=== PATIENT | male | born 1960 | race Caucasian/White ===

== ENCOUNTER 2018-04-08 12:30 | Inpatient (IN) | payer OTHER ==
--- NOTE | 2018-04-08 12:56 | PDOC ---
History of Present Illness - General Chief Complaint: Pain Stated Complaint: ABD PAIN Time Seen by Provider: 04/08/18 12:34 History Source: Patient Exam Limitations: No Limitations - History of Present Illness Initial Comments: 04/08/18 12:55 The patient is a 58M wit a PMH of T2DM, HTN, elevated LFT's obesity, hypertriglyceridemia, who presents to the ER with complaints of abdominal pain. The patient states that his abdominal pain started this morning and was initially diffuse, associated with nausea, vomiting, sweats, chills, and diarrhea. He states that since then, the pain has been more focused in his RUQ, does not radiate, and is not associated with CP, cough, or fevers. He states that his vomit was NBNB and his diarrhea was nonbloody. He cannot describe his abdominal pain any further. He denies any dysuria. Past History - Past Medical History Allergies/Adverse Reactions: Allergies Allergy/AdvReac Type Severity Reaction Status Date / Time No Known Allergies Allergy Verified 09/23/13 23:23 Home Medications: Ambulatory Orders Amoxicillin - [Amoxicillin 500mg Capsule -] 500 mg PO TID 09/23/13 Aspirin [Aspirin EC] 81 mg PO DAILY 09/23/13 Doxycycline Hyclate [Vibramycin -] 50 mg PO BID 09/23/13 Lisinopril [Prinivil -] 20 mg PO DAILY 09/23/13 metFORMIN HCL [Glucophage -] 500 mg PO DAILY 09/23/13 Clotrimazole [Antifungal] 15 gm TP BID #1 cream..g. 09/24/13 metFORMIN HCL [Glucophage] 1,000 mg PO DAILY #30 tablet 09/24/13 COPD: No CHF: No Diabetes: Yes HTN: Yes - Surgical History Abdominal Surgery: Yes (no belly button) - Suicide/Smoking/Psychosocial Hx Smoking History: Unknown if ever smoked Have you smoked in the past 12 months: No Number of Cigarettes Smoked Daily: 2 Information on smoking cessation initiated: No Hx Alcohol Use: No Drug/Substance Use Hx: No Substance Use Type: None Review of Systems - Review of Systems Able to Perform ROS?: Yes Comments:: 04/08/18 14:11 GENERAL/CONSTITUTIONAL: Positive for chills and sweats. No fever. No weakness. HEAD, EYES, EARS, NOSE AND THROAT: No change in vision. No ear pain or discharge. No sore throat. CARDIOVASCULAR: No chest pain, palpitations, or lightheadedness. RESPIRATORY: No cough, wheezing, shortness of breath, or hemoptysis. GASTROINTESTINAL: Positive for nausea, vomiting, diarrhea, and abdominal pain. GENITOURINARY: No dysuria, frequency, hematuria, or change in urination. MUSCULOSKELETAL: No joint or muscle swelling or pain. No neck or back pain. SKIN: No rash or lesions. NEUROLOGIC: No headache, numbness, tingling, focal weakness, loss of consciousness, or change in strength/sensation. ENDOCRINE: No increased thirst. No abnormal weight change. HEMATOLOGIC/LYMPHATIC: No anemia, easy bleeding, or history of blood clots. ALLERGIC/IMMUNOLOGIC: No hives or skin allergy. Is the patient limited Macedonian proficient: No *Physical Exam - Vital Signs Last Vital Signs Temp Pulse Resp BP Pulse Ox 98.1 F 87 16 100/60 94 L 04/08/18 12:30 04/08/18 12:30 04/08/18 12:30 04/08/18 12:30 04/08/18 12:30 - Physical Exam Comments: 04/08/18 14:13 GENERAL: Well developed, well nourished. Awake and alert. No acute distress. HEENT: Normocephalic, atraumatic. Hearing grossly normal. Moist mucous membranes. PERRLA, EOMI. No conjunctival pallor. Sclera are non-icteric. NECK: Supple. Full ROM. No JVD. CARDIOVASCULAR: Regular rate and rhythm. No murmurs, rubs, or gallops. PULMONARY: No evidence of respiratory distress. Lungs clear to auscultation bilaterally. No wheezing, rales or rhonchi. ABDOMINAL: Distended, with TTP over RUQ without rebound or guarding. + Melgar's sign. GENITOURINARY: No CVA tenderness bilaterally. MUSCULOSKELETAL: Normal range of motion at all joints. No bony deformities or tenderness. EXTREMITIES: No cyanosis. No clubbing. No edema. No calf tenderness or swelling. SKIN: Warm and dry. Normal capillary refill. No rashes. No jaundice. NEUROLOGICAL: Alert, awake, appropriate. Cranial nerves 2-12 grossly intact. Normal speech. Gait is normal without ataxia. PSYCHIATRIC: Cooperative. Good eye contact. Appropriate mood and affect. Moderate Sedation - Procedure Monitoring Vital Signs: Procedure Monitoring Vital Signs Temperature 98.1 F 04/08/18 12:30 Pulse Rate 87 04/08/18 12:30 Respiratory Rate 16 04/08/18 12:30 Blood Pressure 100/60 04/08/18 12:30 O2 Sat by Pulse Oximetry (%) 94 L 04/08/18 12:30 ED Treatment Course - LABORATORY CBC & Chemistry Diagram: 04/08/18 13:21 04/08/18 13:21 Medical Decision Making - Medical Decision Making 04/08/18 14:13 The patient is a 58M with MMP who presents to the ER with complaints of abdominal pain, vomiting, and diarrhea. He denies any current nausea but admits to diarrhea and vomiting. PE shows TTP over RUQ, concerning for hepatobiliary pathology including cholecystitis. US ordered of RUQ. Bedside reveals dilated gallbladder w/ possible dilated CBD. 04/08/18 15:07 Lactate 2.8. Giving another L of fluids. Pt stable and has received imaging. Pending reads. Lipase of 615. 04/08/18 15:25 US read: IMPRESSION: Hepatomegaly with fatty infiltration versus hepatocellular disease. Adequately distended gallbladder without intraluminal stones or sonographic evidence of acute cholecystitis Very limited visualization of the pancreas that appears to be echogenic. Apparent enlarged pancreatic head likely due to technique. Additional views of the pancreas or correlation with CT scan of the abdomen is needed. The pancreas was within normal limits in size on prior CT scan of the abdomen dated 04/04/2013 Nonvisualization of the inferior vena cava. Pending CT. 04/08/18 18:16 Giving 1g ceftriaxone and collected blood cultures w/ repeat lactate, concerning for SBP. Pending CT read. 04/08/18 18:23 CT Impression: No definite CT signs of acute pathology are seen. In comparison to a 2014 CT study the pancreatic head appears slightly more prominent probably on the basis of partial volume averaging rather than representing pathologic change such as mild acute pancreatitis or minimal subtle neoplastic enlargement. Clinical/laboratory correlation is suggested as well as correlation with nonemergent contrast enhanced MRI or CT. There is prominent diffuse hepatic steatosis with associated hepatomegaly. Small perisplenic varices are again visualized. Minimal to mild sigmoid diverticulosis. Will microblog for admission. 04/08/18 18:[address] Villeda for admission under Dr. Rosales. *DC/Admit/Observation/Transfer Diagnosis at time of Disposition: Pancreatitis Qualifiers: Chronicity: acute Pancreatitis type: other Acute pancreatitis complication: unspecified Qualified Code(s): K85.80 - Other acute pancreatitis without necrosis or infection - Discharge Dispostion Condition at time of disposition: Guarded Decision to Admit order: Yes - Referrals Referrals: Soraya Tellez MD [Primary Care Provider] - - Patient Instructions - Post Discharge Activity
[2018-04-08] MEDS ORDERED: ACETAMINOPHEN 1000 MG/100 ML VIAL (NON FORMULARY) IVPB ONE (13:12)
[2018-04-08] MEDS ORDERED: SODIUM CHLORIDE 0.9% 1000 ML INFUS.BAG IV ONE ×2 (13:12→15:06)
--- NOTE | 2018-04-08 13:27 | PDOC ---
Attending Attestation - HPI HPI: 04/08/18 13:54 The patient is a 58 year old male, with a significant past medical history of DM and hypertriglyceridemia,, who presents to the emergency department with, 1 day of diffuse abdominal pain with associated nausea, NBNB emesis, diarrhea, and chills. He denies any recent headache or dizziness. He denies any recent chest pain or shortness of breath. He denies any recent dysuria, frequency, urgency or hematuria. Allergies: NKDA Primary Care Physician: Dr. Tellez <Kiran Orozco - Last Filed: 04/08/18 18:28> - Resident Resident Name: Wicho Mondragon - ED Attending Attestation I have performed the following: I have examined & evaluated the patient, The case was reviewed & discussed with the resident, I agree w/resident's findings & plan, Exceptions are as noted - Physicial Exam PE: GENERAL: Awake, alert, and fully oriented, in no acute distress HEAD: No signs of trauma EYES: PERRLA, EOMI, sclera anicteric, conjunctiva clear ENT: Auricles normal inspection, hearing grossly normal, nares patent, oropharynx clear without exudates. Moist mucosa NECK: Normal ROM, supple, no lymphadenopathy, JVD, or masses LUNGS: Breath sounds equal, clear to auscultation bilaterally. No wheezes, and no crackles HEART: Regular rate and rhythm, normal S1 and S2, no murmurs, rubs or gallops ABDOMEN: Soft, diffusely tender, worse in epigastric area. Hyperactive bowel sounds. +Guarding, no rebound. No masses EXTREMITIES: Normal range of motion, no edema. No clubbing or cyanosis. No cords, erythema, or tenderness NEUROLOGICAL: Cranial nerves II through XII grossly intact. Normal speech, normal gait. Motor and sensation intact SKIN: Warm, Dry, normal turgor, no rashes or lesions noted. - Medical Decision Making Pt with upper abd pain, found to have elevated lipase and lactate. CT a/p, admit. <Ailyn Mack - Last Filed: 04/12/18 08:15> Attestations - Attestations 04/08/18 18:28 Documentation prepared by Kiran Orozco, acting as medical insurance verifier for Ailyn Mack MD. <Kiran Orozco - Last Filed: 04/08/18 18:28>
[2018-04-08 13:31] LABS: BASO % 0.2 % (0-2.0); EOS % 0.3 % (0-4.5); HEMATOCRIT 53.5 % (35.4-49); HEMOGLOBIN 17.7 GM/dL (11.7-16.9); LYMPH % 5.3 % (8-40); MONO % 5.7 % (3.8-10.2); NEUT % 88.5 % (42.8-82.8); PLATELET COUNT 220 K/MM3 (134-434); RBC 6.08 M/mm3 (4.00-5.60); RDW 14.2 % (11.9-15.9); WHITE BLOOD COUNT 23.8 K/mm3 (4.0-10.0)
[2018-04-08 13:48] LABS: INR 1.07 (0.83-1.09); PROTHROMBIN TIME (PATIENT) 12.6 SEC (9.7-13.0)
[2018-04-08 14:06] LABS: ALBUMIN 4.5 g/dl (3.4-5.0); ALK PHOS 177 U/L (45-117); ANION GAP 13 MMOL/L (8-16); BILIRUBIN,TOTAL 0.4 mg/dL (0.2-1); BLOOD UREA NITROGEN 28 mg/dL (7-18); CALCIUM 9.3 mg/dL (8.5-10.1); CHLORIDE 105 mmol/L (98-107); CO2 19 mmol/L (21-32); CREATININE 1.7 mg/dL (0.55-1.3); GLUCOSE,RANDOM 196 mg/dL (74-106); LIPASE 615 U/L (73-393); SGOT/AST 36 U/L (15-37); SGPT/ALT 68 U/L (13-61); SODIUM 136 mmol/L (136-145)
[2018-04-08] MEDS ORDERED: LACTATED RINGERS SOLUTION 1000 ML INFUS.BAG IV ONE (15:06)
[2018-04-08] MEDS ORDERED: CEFTRIAXONE 1,000 MG in DEXTROSE 5%-WATER - 50 ML IVPB ONE (17:16)
[2018-04-08] MEDS ORDERED: CEFTRIAXONE 1 GM/50 ML BAG ONE (17:53)
[2018-04-08] MEDS ORDERED: morphine CARPU-JECT 4 MG/1 ML DISP.SYRIN IVPUSH ONE (18:31)
[2018-04-08] MEDS ORDERED: morphine SULFATE 4 MG/ML VIAL ONE (18:49)
--- NOTE | 2018-04-08 22:34 | PN ---
Teaching Attending Note Name of Resident: Tomi Goldman ATTENDING PHYSICIAN STATEMENT I saw and evaluated the patient. I reviewed the resident's note and discussed the case with the resident. I agree with the resident's findings and plan as documented. SUBJECTIVE: Seen and examined; please refer to resident note for further historical information. Briefly, this is a 58 y/o HM with a PMH significant for HTN, Hypertriglyceridemia, presents for abdominal pain. He is currently pain free. The pain lasted for 1 day and was accompanied by nausea and diarrhea. He was found to have no further episodes of diarrhea in the ER and he was noted to have leukocytosis to 22. Lipase is 600-range with high 300s being the upper limit of normal. He is hemodynamically stable and afebrile. Initial positive lactate resolved. Interestingly, the CT Abdomen/Pelvis done does not endorse any acyte pathology but comments that compared to 2014 the head of the pancreas may be larger and recommended non-emergency MRCP with contrast. Will admit the patient to medicine and monitor on the floor with GI consult (appreciate subspecialist help in the ongoing management of this patient) 10 sys ROS done and negative aside from HPI PMH and PSH reviewed; negative aside from HPI Social history reviewed FH asked and noncontributory Medication list reviewed; he was unable to verify what he takes OBJECTIVE: VS, labs, imaging reviewed NAD, AAO, resting comfortably in bed NC AT EOMI PERRLA Tympanic abdomen but nontender with only slight distension and +BS RRR s1/2 no mgr Lungs CTAB w/ sym exp CN2-12 wnl, no fnd Labs show leukocytosis to 23 with elevated H/H slightly; Cr 1.7 with glu 196. Lipase is 615. Alk phos is 177, 3% bands, lactate elevated 2.8 to 2.6 after hydration. Elevated alk phos, alt (177, 68) CT abdomen.pelvis shows no tico acute pathology but mentions that compared to 2014 the head of the pancreas is larger and recommended MRCP with contrast. Also noted hepatic steatosis and diverticulosis. US shows hepatomegaly/hepatocellular disease with no cholecystitis and no stones. ASSESSMENT AND PLAN: Patient presents with abdominal pain; lipase elevated but not even 2x ULN. Leukocytosis observed with no tico pancreatitis but compared to 2014 the head of the pancreas may be larger. He also had a slight MARZENA to 1.7. 1) Abdominal Pain, resolved; some mild distention + Leukocytosis -Ddx broad. No tico pancreatitis on CT or any colitis, etc. Head of pancreas is elevated -Consider other causes of elevated lipase such as esophagitis, etc. On IV protonix 40 QD -Though no tico pancreatitis on CT with Lipase only 600s (not even 2x ULN) we will still workup; check TG given hx high TG and reviewed the RUQ US which didn' t show any gallstones/cholecystitis. Checking amylase, as well. We will be getting MRCP w/ contrast to r/o issues with the pancreatic head which may be slightly larger than it was in the past. -Furthermore, given the diarrhea, stool studies will be checked. Given the leukocytosis will also add on a Cdif though less likely given his history. Monitor blood cx but as afebrile can likely hold off on abx for now. 2) Potentially enlarged pancreatic head -MRCP w/ contrast ordered; GI consult pending -Trend CMP 3) Hepatocellular disease with hepatomegaly -Check hepatitis pannel; noted on CT and ultrasound. -Trend CMP; recommend lifestyle changes. Denies EtOH abuse. Is obese so consider non-alcoholic changes, etc. 4) MARZENA -Likely prerenal giving history -Chek BMP post-hydration. If worsens consider nephrology consultation and obtaining FeNa. 5) Transaminitis -Alk phos 177 with ALT 68; checking GGT. RUQ US and the CT results noted. MRCP pending 6) Diverticulosis -Noted on CT scan; followup 7) Hx DM -SSI; hold MTF when inpatient. 8) Hx Hypertriglyceridemia -Not listed on home agents; check lipids and if indicated will start statin. 9) Obesity -[employer] regarding lifestyle modifications 10) Leukocytosis -Per #1 FENA -LE@100 -PRN replete -Advance per GI -As tolerated Full Code
[2018-04-09] MEDS: PANTOPRAZOLE SODIUM 40 MG VIAL IVPUSH SCH ×2 (02:31→10:07)
--- NOTE | 2018-04-09 02:51 | HP ---
CHIEF COMPLAINT: Abdominal pain PCP: Dr. Tellez HISTORY OF PRESENT ILLNESS: The patient is a 58 yo Bahamian speaking male w/ PMH T2DM, HTN, elevated LFTs, elevated TAGs who comes into the ED c/o a 1 day Hx of abdominal pain. The patient states that he has been experiencing RUQ abdominal pain which radiates to his RLQ and groin. The patient associates these ssx with 5 episodes of NBNB vomiting as well as 5 episodes of diarrhea. Last PO intake was the day prior to admission. The patient denies fevers, chills, chest pain, SOB. No sick contacts. Patient states that his ssx stopped at approx. 5pm this evening and he has been symptoms free since. ER course was notable for: (1) leukocytosis to 23, Lipase 615, LA 2.8 -> 2.6 (2) s/p 2L NS, 1L LR in ED (3) CT showing enlargement of the head of the pancreas (possibly 2/2 technique) (4) RUQ US showing normal GB without stones Recent Travel: none PAST MEDICAL HISTORY: see HPI PAST SURGICAL HISTORY: abdominal sx; patient unsure of the details Social History: Smoking: denies Alcohol: denies Drugs: denies Family History: Non-contributory Allergies No Known Allergies Allergy (Verified 09/23/13 23:23) HOME MEDICATIONS: Home Medications Medication Instructions Recorded Amoxicillin - [Amoxicillin 500mg 500 mg PO TID 09/23/13 Capsule -] Aspirin [Aspirin EC] 81 mg PO DAILY 09/23/13 Doxycycline Hyclate [Vibramycin -] 50 mg PO BID 09/23/13 Lisinopril [Prinivil -] 20 mg PO DAILY 09/23/13 metFORMIN HCL [Glucophage -] 500 mg PO DAILY 09/23/13 Clotrimazole [Antifungal] 15 gm TP BID #1 cream..g. 09/24/13 metFORMIN HCL [Glucophage] 1,000 mg PO DAILY #30 tablet 09/24/13 REVIEW OF SYSTEMS CONSTITUTIONAL: Absent: fever, chills, diaphoresis, generalized weakness, malaise, loss of appetite, weight change HEENT: Absent: rhinorrhea, nasal congestion, throat pain, throat swelling, difficulty swallowing, mouth swelling, ear pain, eye pain, visual changes CARDIOVASCULAR: Absent: chest pain, syncope, palpitations, irregular heart rate, lightheadedness , peripheral edema RESPIRATORY: Absent: cough, shortness of breath, dyspnea with exertion, orthopnea, wheezing, stridor, hemoptysis GASTROINTESTINAL: Absent: constipation, melena, hematochezia GENITOURINARY: Absent: dysuria, frequency, urgency, hesitancy, hematuria, flank pain, genital pain MUSCULOSKELETAL: Absent: myalgia, arthralgia, joint swelling, back pain, neck pain SKIN: Absent: rash, itching, pallor HEMATOLOGIC/IMMUNOLOGIC: Absent: easy bleeding, easy bruising, lymphadenopathy, frequent infections ENDOCRINE: Absent: unexplained weight gain, unexplained weight loss, heat intolerance, cold intolerance NEUROLOGIC: Absent: headache, focal weakness or paresthesias, dizziness, unsteady gait, seizure, mental status changes, bladder or bowel incontinence PSYCHIATRIC: Absent: anxiety, depression, suicidal or homicidal ideation, hallucinations. PHYSICAL EXAMINATION Vital Signs - 24 hr 04/08/18 04/08/18 12:30 21:54 Temperature 98.1 F 98.5 F Pulse Rate 87 Pulse Rate [ 93 H Left Radial] Respiratory 16 18 Rate Blood Pressure 100/60 Blood Pressure 131/75 [Left Arm] O2 Sat by Pulse 94 L 95 Oximetry (%) GENERAL: Awake, alert, and fully oriented, in no acute distress. HEAD: Normal with no signs of trauma. EYES: Pupils equal, round and reactive to light, extraocular movements intact, sclera anicteric, conjunctiva clear. No lid lag. LUNGS: Breath sounds equal, clear to auscultation bilaterally. No wheezes, and no crackles. No accessory muscle use. HEART: Regular rate and rhythm, normal S1 and S2 without murmur, rub or gallop. ABDOMEN: Soft, nontender. Mild abdominal distension present, normoactive bowel sounds, no guarding, no rebound, no masses. No hepatomegaly or splenomegaly. LOWER EXTREMITIES: 2+ pulses, warm, well-perfused. No calf tenderness. No peripheral edema. NEUROLOGICAL: Cranial nerves II-X intact. Normal speech. SKIN: Warm, dry, normal turgor, no rashes or lesions noted, normal capillary refill. Laboratory Results - last 24 hr 04/08/18 04/08/18 04/08/18 13:21 13:21 13:21 WBC 23.8 H RBC 6.08 H Hgb 17.7 H Hct 53.5 H D MCV 88.0 MCH 29.0 MCHC 33.0 RDW 14.2 Plt Count 220 MPV 10.0 Absolute Neuts (auto) 21.1 H Total Counted 100 Neutrophils % 88.5 H D Neutrophils % (Manual) 86.0 H Band Neutrophils % 3.0 Lymphocytes % 5.3 L D Lymphocytes % (Manual) 3.0 L Monocytes % 5.7 Monocytes % (Manual) 7 Eosinophils % 0.3 D Eosinophils % (Manual) 1.0 Basophils % 0.2 Basophils % (Manual) 0.0 Nucleated RBC % 0 PT with INR 12.60 INR 1.07 Sodium 136 Potassium 5.0 Chloride 105 Carbon Dioxide 19 L Anion Gap 13 BUN 28 H Creatinine 1.7 H Creat Clearance w eGFR 41.75 Random Glucose 196 H Lactic Acid Calcium 9.3 Total Bilirubin 0.4 AST 36 ALT 68 H Alkaline Phosphatase 177 H Total Protein 8.0 Albumin 4.5 Lipase 615 H Blood Type Antibody Screen 04/08/18 04/08/18 04/08/18 13:21 13:21 17:15 WBC RBC Hgb Hct MCV MCH MCHC RDW Plt Count MPV Absolute Neuts (auto) Total Counted Neutrophils % Neutrophils % (Manual) Band Neutrophils % Lymphocytes % Lymphocytes % (Manual) Monocytes % Monocytes % (Manual) Eosinophils % Eosinophils % (Manual) Basophils % Basophils % (Manual) Nucleated RBC % PT with INR INR Sodium Potassium Chloride Carbon Dioxide Anion Gap BUN Creatinine Creat Clearance w eGFR Random Glucose Lactic Acid 2.8 H* 2.6 H* Calcium Total Bilirubin AST ALT Alkaline Phosphatase Total Protein Albumin Lipase Blood Type O POSITIVE Antibody Screen Negative ASSESSMENT/PLAN: The patient is a 58 yo m w/ PMH NIDDM, HTN, elevated LFTs, Elevated TAGs who comes into the ED c/o RUQ and RLQ abdominal pain associated with vomiting and diarrhea for the past 1 day. #Nausea, Vomiting, Diarrhea possibly 2/2 acute pancreatitis, r/o c.diff, gastroenteritis. -Lipase 615, not diagnostic -CTAP showing enlargement of pancreatic head; this may be due to techniques, as the report says, or may represent a mass at the head of the pancreas -will order MRCP to further evaluate CT findings. -Given abdominal pain and possible positive CT, will treat for presumptive Pancreatitis. LR@ 100, NPO -Will order stool lactoferrin, WBC, C.Diff r/o infectious diarrhea -If patient becomes febrile, consider culture and further ABX coverage. #NIDDM -BGM ACHS -ISS ACHS #HTN - c/w home lisinopril #FEN -LR @ 100 -lytes WNL -NPO #Prophy -SCDs #Dispo -Admit med-surg -Patient's home medications could not be verified, therefore the medications of record were not restarted. Visit type - Emergency Visit Emergency Visit: Yes ED Registration Date: 04/08/18 Care time: The patient presented to the Emergency Department on the above date and was hospitalized for further evaluation of their emergent condition. - New Patient This patient is new to me today: Yes Date on this admission: 04/09/18 - Critical Care Critical Care patient: No
[2018-04-09 03:08] VITALS: BMI 32.3
[2018-04-09] MEDS: INSULIN SLIDING SCALE (NOVOLOG) 1 VIAL SQ SCH ×4 (07:04→21:18)
[2018-04-09] MEDS ORDERED: INSULIN (NOVOLOG) ASPART 100 UNITS/ML 10ML VIAL ONE ×2 (07:08→21:03)
[2018-04-09] MEDS ORDERED: INSULIN (LEVEMIR) 100 UNITS/ML UNITS SQ ONE (07:09)
[2018-04-09 07:50] LABS: INR 1.13 (0.83-1.09); PROTHROMBIN TIME (PATIENT) 13.4 SEC (9.7-13.0)
[2018-04-09 08:07] LABS: HEMATOCRIT 42.3 % (35.4-49); HEMOGLOBIN 14.7 GM/dL (11.7-16.9); MCH 30.3 pg (25.7-33.7); MCHC 34.9 g/dl (32.0-35.9); MEAN CELL VOLUME 86.9 fl (80-96); MEAN PLT VOLUME 9.7 fl (7.5-11.1); PLATELET COUNT 148 K/MM3 (134-434); RBC 4.86 M/mm3 (4.00-5.60); RDW 14.3 % (11.9-15.9); WHITE BLOOD COUNT 8.8 K/mm3 (4.0-10.0)
[2018-04-09 08:09] LABS: AMYLASE 56 U/L (25-115); ANION GAP 7 MMOL/L (8-16); BLOOD UREA NITROGEN 24 mg/dL (7-18); CALCIUM 8.2 mg/dL (8.5-10.1); CHLORIDE 112 mmol/L (98-107); CHOLESTEROL 90 mg/dL (50-200); CO2 24 mmol/L (21-32); CREATININE 0.6 mg/dL (0.55-1.3); GLUCOSE,RANDOM 142 mg/dL (74-106); HDL CHOLESTEROL 48 mg/dL (40-60); MAGNESIUM 2.3 mg/dL (1.8-2.4); PHOSPHOROUS 2.8 mg/dL (2.5-4.9); SODIUM 142 mmol/L (136-145); TRIGLYCERIDES 78 mg/dL (0-150)
[2018-04-09] MEDS ORDERED: LISINOPRIL 20 MG TABLET (FP) PO ONE (10:00)
[2018-04-09] MEDS: LACTATED RINGERS SOLUTION 1,000 ML IV SCH ×2 (10:10)
[2018-04-09 10:35] LABS: ERYTHROCYTE SEDIMENTATION RATE 6 mm/hr (0-20)
--- NOTE | 2018-04-09 11:57 | EKG ---
Test Reason : Blood Pressure : / mmHG Vent. Rate : 099 BPM Atrial Rate : 099 BPM P-R Int : 170 ms QRS Dur : 092 ms QT Int : 362 ms P-R-T Axes : 066 097 048 degrees QTc Int : 464 ms NORMAL SINUS RHYTHM POSSIBLE LEFT ATRIAL ENLARGEMENT RIGHTWARD AXIS INCOMPLETE RIGHT BUNDLE BRANCH BLOCK BORDERLINE ECG NO PREVIOUS ECGS AVAILABLE Confirmed by COTY VAIL, JOHN ([id number]) on 04/09/2018 11:57:02 AM Referred By: Confirmed By:JOHN ANSARI MD
[2018-04-09 13:38] LABS: ALBUMIN 3.3 g/dl (3.4-5.0); ALK PHOS 111 U/L (45-117); BILIRUBIN,TOTAL 0.5 mg/dL (0.2-1); SGOT/AST 23 U/L (15-37); SGPT/ALT 48 U/L (13-61); TOT PROT 6.1 g/dl (6.4-8.2)
--- NOTE | 2018-04-09 15:39 | PN ---
Teaching Attending Note Name of Resident: Adolfo Hudson ATTENDING PHYSICIAN STATEMENT I saw and evaluated the patient. I reviewed the resident's note and discussed the case with the resident. I agree with the resident's findings and plan as documented. SUBJECTIVE: No fever or chills . has abd pain which is located in RUQ now, better but did not resolve. No N/V now but had it yesterday with non bloody diarrhea x 5 times. previous episodes of RUQ abd pain which he ignored OBJECTIVE: NAD Cv: RRR Lungs: CTAB Ext : no edema Abd: soft, obese, TTP in RUQ with no rebound tenderness and + Melgar's . nl BS. ASSESSMENT AND PLAN: 58 y/o gentleman withh/o HLP and DM who presented with Abd pain 1- Abd pain: unclear etiology so far, but tenderness in RUQ increase suspicious for biliary source. severe pain with improvement but no resolution with down trending LFts---> ? passed a stone , or does he has cholecystitis ? although lipase is slightly elevated, his tenderness is not located in epigastric area, and no clear evidence of panreatitis on CT scan. his DM meds can can cause pancreatitis though of course , gastritis , and IBS in DDx. - follow mRCP - check HIDA scan - IVF - Gi consult as etiology is not clear 2- L[place] : due to volume depletion form N/V/d . - cr normalized with IVF 3- h/o DM : cont with SSI for now. hold p omeds 4- dispo : monitor pending w/u
--- NOTE | 2018-04-09 16:03 | PN ---
Physical Exam: SUBJECTIVE: Patient seen and examined at bedside this morning. Patient is a 58 year old male with past medical history of DM, HTN, HLD, elevated LFTs, presented with 1 day history of severe, sharp 10/10 RUQ/ epigastric pain radiating to RLQ and right groin. This was accompanied by nausea , 5 episodes of NBNB vomiting and loose watery stools. Patient denies any fever , chills, headache, dizziness, chest pain, SOB, urinary symptoms. Today, patient reports improvement of abdominal pain, with no more episodes of vomiting and diarrhea. OBJECTIVE: Vital Signs Period Temp Pulse Resp BP Sys/Berumen Pulse Ox Last 24 Hr 97.9 F-98.5 F 69-93 18-18 109-131/64-75 95-95 GENERAL: The patient is awake, alert, and fully oriented, in no acute distress. HEAD: Normal with no signs of trauma. EYES: PERRLA, EOMI, sclera anicteric, conjunctiva clear. ENT: Ears normal, nares patent, oropharynx clear without exudates, moist mucous membranes. NECK: Trachea midline, full range of motion, supple. LUNGS: Breath sounds equal, clear to auscultation bilaterally. HEART: Regular rate and rhythm, S1, S2 without murmur, rub or gallop. ABDOMEN: Soft, +RUQ<RLQ tenderness, nondistended, normoactive bowel sounds. EXTREMITIES: 2+ pulses, warm, well-perfused, no edema. NEUROLOGICAL: Cranial nerves II through XII grossly intact. Normal speech, gait not observed. PSYCH: Normal mood, normal affect. SKIN: Warm, dry, normal turgor, no rashes or lesions noted Laboratory Results - last 24 hr 04/08/18 04/09/18 04/09/18 17:15 05:55 06:00 WBC RBC Hgb Hct MCV MCH MCHC RDW Plt Count MPV ESR PT with INR INR PTT (Actin FS) Sodium 142 Potassium 4.0 Chloride 112 H Carbon Dioxide 24 Anion Gap 7 L BUN 24 H Creatinine 0.6 Creat Clearance w eGFR > 60 POC Glucometer 155 Random Glucose 142 H Lactic Acid 2.6 H* Calcium 8.2 L Phosphorus 2.8 Magnesium 2.3 Total Bilirubin 0.5 AST 23 ALT 48 Alkaline Phosphatase 111 C-Reactive Protein 3.3 H Total Protein 6.1 L Albumin 3.3 L Triglycerides 78 Cholesterol 90 Total LDL Cholesterol 38 HDL Cholesterol 48 Total Amylase 56 04/09/18 04/09/18 04/09/18 06:00 06:00 12:47 WBC 8.8 RBC 4.86 Hgb 14.7 Hct 42.3 D MCV 86.9 MCH 30.3 MCHC 34.9 RDW 14.3 Plt Count 148 D MPV 9.7 ESR 6 PT with INR 13.40 H INR 1.13 H PTT (Actin FS) 30.0 Sodium Potassium Chloride Carbon Dioxide Anion Gap BUN Creatinine Creat Clearance w eGFR POC Glucometer 117 Random Glucose Lactic Acid Calcium Phosphorus Magnesium Total Bilirubin AST ALT Alkaline Phosphatase C-Reactive Protein Total Protein Albumin Triglycerides Cholesterol Total LDL Cholesterol HDL Cholesterol Total Amylase 04/09/18 12:50 WBC RBC Hgb Hct MCV MCH MCHC RDW Plt Count MPV ESR PT with INR INR PTT (Actin FS) Sodium Potassium Chloride Carbon Dioxide Anion Gap BUN Creatinine Creat Clearance w eGFR POC Glucometer Random Glucose Lactic Acid 1.0 Calcium Phosphorus Magnesium Total Bilirubin AST ALT Alkaline Phosphatase C-Reactive Protein Total Protein Albumin Triglycerides Cholesterol Total LDL Cholesterol HDL Cholesterol Total Amylase Active Medications Generic Name Dose Route Start Last Admin Trade Name Freq PRN Reason Stop Dose Admin Lactated Ringer's 1,000 mls @ 100 mls/hr 04/08/18 23:15 04/09/18 10:10 Lactated Ringers Solution IV 100 mls/hr ASDIR JULIO Administration Insulin Aspart 1 vial 04/09/18 07:00 04/09/18 11:59 Novolog Vial Sliding Scale - SQ Not Given ACHS JULIO Protocol Lisinopril 20 mg 04/10/18 10:00 Prinivil PO DAILY JULIO Pantoprazole Sodium 40 mg 04/09/18 01:50 04/09/18 10:07 Protonix Iv IVPUSH 40 mg DAILY JULIO Administration ASSESSMENT/PLAN: Patient is a 58 year old male with past medical history of DM, HTN, HLD, elevated LFTs, presented with 1 day history of severe, sharp 10/10 RUQ/ epigastric pain radiating to RLQ and right groin. #RUQ tenderness: unclear etiology -may 2/ pancreatitis vs cholecystitis vs gastroenteritis vs possibly passed a stone? -Lipase 615 -CT AP: pancreatic head appear slightly more prominent probably on the basis of partial volume averaging rather than representing pathologic change such as mild acute pancreatitis or minimal subtle neoplastic enlargement. Prominent diffuse hepatic steatosis with associated hepatomegaly. Small perisplenic varices are again visualized. Minimal to mild sigmoid diverticulosis. -MRI of abdomen with MRCP and HIDA scan ordered. -GI consulted. Recommendations appreciated. -Antibiotics coverage for now. Will start Ceftriaxone 1gm daily -Iv hydration #DM -BGM ACHS -Insulin sliding scale implemented #HTN -Continue home Lisinopril 20mg daily. -will monitor BP #Elevated LFTs -In 2013, noted to have elevated LFTs -CT AP: prominent diffuse hepatic steatosis with associated hepatomegaly. -Will continue to monitor #FEN -IV LR @100 -Electrolytes wnl, routine bmp monitoring -Clear liquid diet #Prophylaxis -SCDs -early ambulation #Disposition -full code -med-surg Visit type - Emergency Visit Emergency Visit: Yes ED Registration Date: 04/08/18 Care time: The patient presented to the Emergency Department on the above date and was hospitalized for further evaluation of their emergent condition. - New Patient This patient is new to me today: Yes Date on this admission: 04/09/18 - Critical Care Critical Care patient: No
--- NOTE | 2018-04-09 16:18 | CON.GI ---
Consult Consult Specialty:: GI Referred by:: Hospitalist Service Reason for Consultation:: Abdominal pain - History of Present Illness Chief Complaint: Abdominal pain: [employer] [id number] Utilized History of Present Illness: 58M admitted for evaluation of abdominal pain. He describes the pain as being in the mid abdomen, starting at 10am yesterday, increasing in intensity over 2 hours and associated with nausea, vomiting and diarrhea. He denied similar episodes in the past. He denies sick contacts with similar complaints, recent change in his medication regimen, recent antibiotic use, change in dietary habits or recent travel. He came to the ER yesterday afternoon due to the oncreasing intensity of pain. In ER yesterday afternoon WBC was 28K while hgb was 17. Liver chemistreis were unremarkable. Lipase was 615, amylase was normal. He underwent abdominal US revealing fatty liver with hepatomegaly, an adequately distended gallbladder without stones or evidence of acute cholecystitis. Biliary tract was not dilated. He underwent a non contrast CT scan of the abdomen and pelvis revealing a slightly more prominent head of the pancreas when compared to a prior study. Overall pain is improved and he denies further episodes of vomiting or diarrhea. There has been no rectal bleeding. he states having his last colonoscopt about 4 months ago in [place] but cannot recall where it was performed. There is no family history of colon cancer. There is no family history of pancreatitis. One of his brothers had stomach cancer. - History Source History Provided By: Patient, Family Member ( present), Medical Record Limitations to Obtaining History: No Limitations - Past Medical History Cardio/Vascular: Yes: HTN, Hyperlipdemia Endocrine: Yes: Diabetes Mellitus (DM II) - Past Surgical History Past Surgical History: Yes: Hernia Repair (Umbilical) - Alcohol/Substance Use Hx Alcohol Use: Yes (former heavy ETOH. 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year[place] 1986 History of Recent Travel: No Home Medications - Allergies Allergies/Adverse Reactions: Allergies Allergy/AdvReac Type Severity Reaction Status Date / Time No Known Allergies Allergy Verified 09/23/13 23:23 - Home Medications Home Medications: Ambulatory Orders Amoxicillin - [Amoxicillin 500mg Capsule -] 500 mg PO TID 09/23/13 Aspirin [Aspirin EC] 81 mg PO DAILY 09/23/13 Doxycycline Hyclate [Vibramycin -] 50 mg PO BID 09/23/13 Lisinopril [Prinivil -] 20 mg PO DAILY 09/23/13 metFORMIN HCL [Glucophage -] 500 mg PO DAILY 09/23/13 Clotrimazole [Antifungal] 15 gm TP BID #1 cream..g. 09/24/13 metFORMIN HCL [Glucophage] 1,000 mg PO DAILY #30 tablet 09/24/13 Canagliflozin [Invokana] 100 mg PO QID 04/09/18 Glipizide 10 mg PO BID 04/09/18 Sitagliptin Phos/Metformin HCl [Janumet 50-1,000 mg Tablet] 1 each PO QID Family Disease History - Family Disease History Family Disease History: Other: Father (: 60: unclear cause), Mother (: age 100), Brother (4, 1 with stomach cancer, somw with DM II), Sister (1, healthy), Son (3, healthy), Daughter (1, healthy) Other Family History: No family history of colorectal cancer. Brother with stomach cancer Review of Systems - Review of Systems Constitutional: denies: Chills Cardiovascular: denies: Chest Pain Respiratory: denies: Cough Gastrointestinal: reports: Abdominal Pain, Diarrhea, Nausea, Vomiting. denies: Bloating, Constipation, Dysphagia, Indigestion, Melena, Rectal Bleeding, Vomiting Blood Physical Exam-GI Vital Signs: Vital Signs Temperature 98.2 F 04/09/18 14:32 Pulse Rate 72 04/09/18 14:32 Respiratory Rate 18 04/09/18 14:32 Blood Pressure 111/65 04/09/18 14:32 O2 Sat by Pulse Oximetry (%) 95 04/09/18 09:00 Constitutional: Yes: Calm Eyes: No: Sclera Icterus Cardiovascular: Yes: Regular Rate and Rhythm Respiratory: Yes: CTA Bilaterally Gastrointestinal Inspection: Yes: Scars (umbilical scar) ...Auscultate: Yes: Normoactive Bowel Sounds ...Palpate: Yes: Hepatomegaly, Soft, Tenderness (RUQ TTP > mild TTP mid abdomen. Negative valverde's sign). No: Guarding, Tenderness, Rebound ...Percussion: No: Tympanitic Edema: No (No LE edema) Neurological: Yes: Alert Labs: CBC, BMP 04/09/18 06:00 04/09/18 06:00 INR, PTT INR 1.13 (0.83-1.09) H 04/09/18 06:00 Imaging - Results Cat Scan: Report Reviewed, Image Reviewed Ultrasound: Report Reviewed Problem List - Problems (1) Abdominal pain Assessment/Plan: Lipase was mildly elevated and the head of the pancreas is mildly prominent. Currently pain more focused in RUQ. No stones noted on US and no dilated ducts. A mild pancreatitis is a possibility however I agree that the majority of his tenderness is loacted in the RUQ. ? acalculous cholecystitis in a diabetic patient. Acute gastroenteritis a possibility. Advise: 1. Antibiotic coverage for now 2. Agree with MRI of the abdomen with contrast and MRCP to further evaluate pancreas and biliary tract 3. IV hydration Dr. Walter will be covering from 5pm tonight and through the weekend Code(s): R10.9 - UNSPECIFIED ABDOMINAL PAIN
[2018-04-09] MEDS ORDERED: cefTRIAXone SODIUM 1 GM VIAL ONE (17:15)
[2018-04-09] MEDS ORDERED: DEXTROSE 5%-WATER - 50 ML IVPB ONE (17:16)
[2018-04-09] MEDS: CEFTRIAXONE 1 GM in DEXTROSE 5%-WATER - 50 ML IVPB SCH (17:27)
[2018-04-09 19:03] LABS: URINE APPEARANCE CLEAR; URINE BILIRUBIN NEGATIVE (<2.0 mg/dL); URINE COLOR YELLOW; URINE GLUCOSE (UA) 1+ (NEGATIVE); URINE KETONE NEGATIVE (NEGATIVE); URINE LEUK ESTERASE NEGATIVE (NEGATIVE); URINE NITRITE NEGATIVE (NEGATIVE); URINE PROTEIN NEGATIVE (NEGATIVE); URINE UROBILINOGEN NEGATIVE mg/dL (0.2-1.0)
[2018-04-09] MEDS ORDERED: ACETAMINOPHEN 325 MG TABLET (FP) PO ONE (21:27)
[2018-04-10] MEDS: INSULIN SLIDING SCALE (NOVOLOG) 1 VIAL SQ SCH ×4 (06:34→21:53)
[2018-04-10 07:32] LABS: BASO % 0.2 % (0-2.0); EOS % 2.6 % (0-4.5); HEMATOCRIT 41.5 % (35.4-49); HEMOGLOBIN 14.3 GM/dL (11.7-16.9); LYMPH % 32.6 % (8-40); MCH 29.7 pg (25.7-33.7); MCHC 34.4 g/dl (32.0-35.9); MEAN CELL VOLUME 86.3 fl (80-96); MEAN PLT VOLUME 9.6 fl (7.5-11.1); MONO % 5.9 % (3.8-10.2); NEUT % 58.7 % (42.8-82.8); PLATELET COUNT 154 K/MM3 (134-434); RBC 4.81 M/mm3 (4.00-5.60); WHITE BLOOD COUNT 8.3 K/mm3 (4.0-10.0)
[2018-04-10 08:26] LABS: ALBUMIN 3.2 g/dl (3.4-5.0); ALK PHOS 103 U/L (45-117); ANION GAP 8 MMOL/L (8-16); BILIRUBIN,TOTAL 0.5 mg/dL (0.2-1); BLOOD UREA NITROGEN 17 mg/dL (7-18); CALCIUM 8.4 mg/dL (8.5-10.1); CHLORIDE 109 mmol/L (98-107); CO2 23 mmol/L (21-32); CREATININE 0.5 mg/dL (0.55-1.3); GLUCOSE,RANDOM 114 mg/dL (74-106); MAGNESIUM 2.1 mg/dL (1.8-2.4); PHOSPHOROUS 3.3 mg/dL (2.5-4.9); POTASSIUM 4.1 mmol/L (3.5-5.1); SGOT/AST 26 U/L (15-37); SGPT/ALT 53 U/L (13-61); SODIUM 140 mmol/L (136-145)
[2018-04-10] MEDS ORDERED: cefTRIAXone SODIUM 1 GM VIAL ONE (09:27)
[2018-04-10] MEDS ORDERED: DEXTROSE 5%-WATER - 50 ML IVPB ONE (09:28)
[2018-04-10] MEDS: LISINOPRIL 20 MG TABLET (FP) PO SCH (10:05)
[2018-04-10] MEDS: CEFTRIAXONE 1 GM in DEXTROSE 5%-WATER - 50 ML IVPB SCH (10:06)
[2018-04-10] MEDS: PANTOPRAZOLE SODIUM 40 MG VIAL IVPUSH SCH (10:06)
--- NOTE | 2018-04-10 12:44 | PN ---
Physical Exam: SUBJECTIVE: Patient seen and examined at bedside this morning. No acute events overnight. Patient still reported abdominal pain but better than yesterday. Able to tolerate clears. He denies any diarrhea, nausea,vomiting. No fever, chills, headache, dizziness, chest pain, SOB, urinary symptoms. OBJECTIVE: Vital Signs Period Temp Pulse Resp BP Sys/Berumen Pulse Ox Last 24 Hr 97.5 F-98.5 F 66-78 16-20 111-122/62-79 GENERAL: The patient is awake, alert, and fully oriented, in no acute distress. HEAD: Normal with no signs of trauma. EYES: PERRLA, EOMI, sclera anicteric, conjunctiva clear. ENT: Ears normal, nares patent, oropharynx clear without exudates, moist mucous membranes. NECK: Trachea midline, full range of motion, supple. LUNGS: Breath sounds equal, clear to auscultation bilaterally. HEART: Regular rate and rhythm, S1, S2 without murmur, rub or gallop. ABDOMEN: Soft, +RUQ tenderness, nondistended, normoactive bowel sounds, na guarding, no rebound. EXTREMITIES: 2+ pulses, warm, well-perfused, no edema. NEUROLOGICAL: Cranial nerves II through XII grossly intact. Normal speech, gait not observed. PSYCH: Normal mood, normal affect. SKIN: Warm, dry, normal turgor, no rashes or lesions noted Laboratory Results - last 24 hr 04/09/18 04/09/18 04/09/18 06:00 12:47 12:50 WBC RBC Hgb Hct MCV MCH MCHC RDW Plt Count MPV Absolute Neuts (auto) Neutrophils % Lymphocytes % Monocytes % Eosinophils % Basophils % Nucleated RBC % Sodium 142 Potassium 4.0 Chloride 112 H Carbon Dioxide 24 Anion Gap 7 L BUN 24 H Creatinine 0.6 Creat Clearance w eGFR > 60 POC Glucometer 117 Random Glucose 142 H Lactic Acid 1.0 Calcium 8.2 L Phosphorus 2.8 Magnesium 2.3 Total Bilirubin 0.5 AST 23 ALT 48 Alkaline Phosphatase 111 C-Reactive Protein 3.3 H Total Protein 6.1 L Albumin 3.3 L Triglycerides 78 Cholesterol 90 Total LDL Cholesterol 38 HDL Cholesterol 48 Total Amylase 56 Urine Color Urine Appearance Urine pH Ur Specific [place] Urine Protein Urine Glucose (UA) Urine Ketones Urine Blood Urine Nitrite Urine Bilirubin Urine Urobilinogen Ur Leukocyte Esterase 04/09/18 04/09/18 04/10/18 18:00 21:14 05:48 WBC RBC Hgb Hct MCV MCH MCHC RDW Plt Count MPV Absolute Neuts (auto) Neutrophils % Lymphocytes % Monocytes % Eosinophils % Basophils % Nucleated RBC % Sodium Potassium Chloride Carbon Dioxide Anion Gap BUN Creatinine Creat Clearance w eGFR POC Glucometer 120 113 Random Glucose Lactic Acid Calcium Phosphorus Magnesium Total Bilirubin AST ALT Alkaline Phosphatase C-Reactive Protein Total Protein Albumin Triglycerides Cholesterol Total LDL Cholesterol HDL Cholesterol Total Amylase Urine Color Yellow Urine Appearance Clear Urine pH 6.0 Ur Specific [place] 1.020 Urine Protein Negative Urine Glucose (UA) 1+ H Urine Ketones Negative Urine Blood Negative Urine Nitrite Negative Urine Bilirubin Negative Urine Urobilinogen Negative Ur Leukocyte Esterase Negative 04/10/18 04/10/18 04/10/18 07:00 07:00 12:11 WBC 8.3 RBC 4.81 Hgb 14.3 Hct 41.5 MCV 86.3 MCH 29.7 MCHC 34.4 RDW 14.0 Plt Count 154 MPV 9.6 Absolute Neuts (auto) 4.9 Neutrophils % 58.7 D Lymphocytes % 32.6 D Monocytes % 5.9 Eosinophils % 2.6 D Basophils % 0.2 Nucleated RBC % 0 Sodium 140 Potassium 4.1 Chloride 109 H Carbon Dioxide 23 Anion Gap 8 BUN 17 Creatinine 0.5 L Creat Clearance w eGFR > 60 POC Glucometer 103 Random Glucose 114 H Lactic Acid Calcium 8.4 L Phosphorus 3.3 Magnesium 2.1 Total Bilirubin 0.5 AST 26 ALT 53 Alkaline Phosphatase 103 C-Reactive Protein Total Protein 6.0 L Albumin 3.2 L Triglycerides Cholesterol Total LDL Cholesterol HDL Cholesterol Total Amylase Urine Color Urine Appearance Urine pH Ur Specific [place] Urine Protein Urine Glucose (UA) Urine Ketones Urine Blood Urine Nitrite Urine Bilirubin Urine Urobilinogen Ur Leukocyte Esterase Active Medications Generic Name Dose Route Start Last Admin Trade Name Freq PRN Reason Stop Dose Admin Lactated Ringer's 1,000 mls @ 100 mls/hr 04/08/18 23:15 04/09/18 10:10 Lactated Ringers Solution IV 100 mls/hr ASDIR JULIO Administration Ceftriaxone Sodium 1 gm/ 50 mls @ 100 mls/hr 04/09/18 17:15 04/10/18 10:06 Dextrose IVPB 100 mls/hr DAILY JULIO Administration Metronidazole 500 mg in 100 mls @ 100 mls/hr 04/10/18 11:45 04/10/18 12:23 Flagyl 500mg Premixed Ivpb - IVPB 100 mls/hr Q8H-IV JULIO Administration Insulin Aspart 1 vial 04/09/18 07:00 04/10/18 12:15 Novolog Vial Sliding Scale - SQ Not Given ACHS JULIO Protocol Lisinopril 20 mg 04/10/18 10:00 04/10/18 10:05 Prinivil PO 20 mg DAILY JULIO Administration Pantoprazole Sodium 40 mg 04/09/18 01:50 04/10/18 10:06 Protonix Iv IVPUSH 40 mg DAILY JULIO Administration ASSESSMENT/PLAN: Patient is a 58 year old male with past medical history of DM, HTN, HLD, elevated LFTs, presented with 1 day history of severe, sharp 10/10 RUQ/ epigastric pain radiating to RLQ and right groin. #RUQ tenderness: unclear etiology -july 15 pancreatitis vs cholecystitis vs gastroenteritis vs possibly passed a stone? -Lipase 615 -CT AP: pancreatic head appear slightly more prominent probably on the basis of partial volume averaging rather than representing pathologic change such as mild acute pancreatitis or minimal subtle neoplastic enlargement. Prominent diffuse hepatic steatosis with associated hepatomegaly. Small perisplenic varices are again visualized. Minimal to mild sigmoid diverticulosis. -MRI of abdomen with MRCP and HIDA scan ordered. -GI consulted. Recommendations appreciated. -Antibiotics coverage for now. -Will start Ceftriaxone 1gm daily and Flagyl 500mg q8h -Iv hydration #DM -BGM ACHS -Insulin sliding scale implemented #HTN -Continue home Lisinopril 20mg daily. -will monitor BP #Elevated LFTs: improved -AST/ALT/Alk phos: -In 2013, noted to have elevated LFTs -CT AP: prominent diffuse hepatic steatosis with associated hepatomegaly. -Will continue to monitor #FEN -IV LR @100 -Electrolytes wnl, routine bmp monitoring -Clear liquid diet #Prophylaxis -SCDs -early ambulation #Disposition -full code -med-surg Visit type - Emergency Visit Emergency Visit: Yes ED Registration Date: 04/08/18 Care time: The patient presented to the Emergency Department on the above date and was hospitalized for further evaluation of their emergent condition. - New Patient This patient is new to me today: No - Critical Care Critical Care patient: No
--- NOTE | 2018-04-10 14:55 | PN ---
Teaching Attending Note Name of Resident: Jesusita Amanda ATTENDING PHYSICIAN STATEMENT I saw and evaluated the patient. I reviewed the resident's note and discussed the case with the resident. I agree with the resident's findings and plan as documented. SUBJECTIVE: No fever or chills . feels much better but still has RUQ pain. OBJECTIVE: NAD Cv: RRR Lungs: CTAB Ext: no edema Abd: soft, obese, TTP in RUQ with no rebound tenderness and - Melgar's . nl BS. ASSESSMENT AND PLAN: 58 y/o gentleman withh/o HLP and DM who presented with Abd pain 1- Abd pain: improved. still suspecting biliary source due to persistent tenderness. LFTS improved, but still passing a stone does not explain persistent pain/tenderness - cont Abx for now - MRCP pending read - HIDA scan if MRI does not show an etiology - IVF - cont clears 2- MARZENA : due to volume depletion form N/V/d . - cr normalized with IVF 3- h/o DM : cont with SSI for now. hold po meds 4- Dispo : monitor pending w/u
[2018-04-10] MEDS: LACTATED RINGERS SOLUTION 1,000 ML IV SCH (21:47)
[2018-04-11] MEDS: INSULIN SLIDING SCALE (NOVOLOG) 1 VIAL SQ SCH ×4 (06:48→21:11)
[2018-04-11 07:06] LABS: HEMATOCRIT 41.1 % (35.4-49); HEMOGLOBIN 14.2 GM/dL (11.7-16.9); MCH 29.9 pg (25.7-33.7); MCHC 34.4 g/dl (32.0-35.9); MEAN CELL VOLUME 86.8 fl (80-96); MEAN PLT VOLUME 9.5 fl (7.5-11.1); PLATELET COUNT 142 K/MM3 (134-434); RBC 4.74 M/mm3 (4.00-5.60)
[2018-04-11 07:33] LABS: ANION GAP 6 MMOL/L (8-16); BLOOD UREA NITROGEN 12 mg/dL (7-18); CALCIUM 8.3 mg/dL (8.5-10.1); CHLORIDE 109 mmol/L (98-107); CO2 25 mmol/L (21-32); CREATININE 0.6 mg/dL (0.55-1.3); GLUCOSE,RANDOM 95 mg/dL (74-106); MAGNESIUM 2.1 mg/dL (1.8-2.4); PHOSPHOROUS 4.1 mg/dL (2.5-4.9); POTASSIUM 3.9 mmol/L (3.5-5.1); SODIUM 141 mmol/L (136-145)
[2018-04-11] MEDS ORDERED: cefTRIAXone SODIUM 1 GM VIAL ONE (08:11)
[2018-04-11] MEDS ORDERED: DEXTROSE 5%-WATER - 50 ML IVPB ONE (08:11)
[2018-04-11] MEDS: LACTATED RINGERS SOLUTION 1,000 ML IV SCH ×2 (08:34→21:41)
[2018-04-11] MEDS: LISINOPRIL 20 MG TABLET (FP) PO SCH (09:23)
[2018-04-11] MEDS: PANTOPRAZOLE SODIUM 40 MG VIAL IVPUSH SCH (09:23)
[2018-04-11] MEDS: CEFTRIAXONE 1 GM in DEXTROSE 5%-WATER - 50 ML IVPB SCH (09:23)
[2018-04-11] MEDS ORDERED: ENOXAPARIN NA (PORCINE) 40 MG/0.4 ML DISP.SYRIN SQ SCH (10:00)
--- NOTE | 2018-04-11 13:41 | PN ---
GI Progress Note Subjective: GI ( covering Dr. Neri) : Still having pain but it is improving and he is tolerating liquids. Discussed MRCP with Dr Nichols of radiology. The CBD is normal and GB only slightly dilated but without wall thickening. He sees a a small focus in the tail of the pancreas that may be a small focus of pancreatitis vs possible neoplasm. Advised EUS. I will inform Dr Neri - Objective Vital Signs: Vital Signs Temperature 97.8 F 04/11/18 06:00 Pulse Rate 71 04/11/18 06:00 Respiratory Rate 18 04/11/18 06:00 Blood Pressure 124/71 04/11/18 06:00 O2 Sat by Pulse Oximetry (%) 96 04/11/18 09:00 Laboratory Tests 04/11/18 06:30 WBC 8.0 Hgb 14.2 Constitutional: No Distress ...Auscultate: Yes: Normoactive Bowel Sounds ...Palpate: Yes: Soft, Other (no focal tenderness) Labs: CBC, BMP 04/11/18 06:30 04/11/18 06:30 INR, PTT INR 1.13 (0.83-1.09) H 04/09/18 06:00 Problem List - Problems (1) Pancreatic mass Assessment/Plan: Will try full liquids. Will need EUS ultimately. Will order Ca 19.9. If pain persists may need EGD. Will discuss with Dr Neri. I did communicate with Dr. 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
--- NOTE | 2018-04-11 15:58 | PN ---
Progress Note (short form) - Note Progress Note: Subjective: No fever or chills .Abd pain has improved . feels nauseous . no vomiting. no diarrhea Objective: Vital Signs: Last Vital Signs Temp Pulse Resp BP Pulse Ox 98.1 F 67 18 114/70 96 04/11/18 14:00 04/11/18 14:00 04/11/18 14:00 04/11/18 14:00 04/11/18 09:00 Laboratory Results - last 24 hr 04/10/18 04/10/18 04/11/18 17:28 21:52 06:30 WBC 8.0 RBC 4.74 Hgb 14.2 Hct 41.1 MCV 86.8 MCH 29.9 MCHC 34.4 RDW 14.0 Plt Count 142 MPV 9.5 Sodium Potassium Chloride Carbon Dioxide Anion Gap BUN Creatinine Creat Clearance w eGFR POC Glucometer 89 93 Random Glucose Calcium Phosphorus Magnesium 04/11/18 04/11/18 04/11/18 06:30 06:47 11:32 WBC RBC Hgb Hct MCV MCH MCHC RDW Plt Count MPV Sodium 141 Potassium 3.9 Chloride 109 H Carbon Dioxide 25 Anion Gap 6 L BUN 12 Creatinine 0.6 Creat Clearance w eGFR > 60 POC Glucometer 91 102 Random Glucose 95 Calcium 8.3 L Phosphorus 4.1 Magnesium 2.1 Physical Exam: NAD Cv: RRR Lungs: CTAB Ext: no edema Abd: soft, obese, TTP in RUQ and LLQ today . with no rebound tenderness or guarding ASSESSMENT AND PLAN: 58 y/o gentleman withh/o HLP and DM who presented with Abd pain 1- Abd pain: improved. MRI results d/w Dr. Walter. not sure if he has pancreatitis or tumor or even acute cholecystitis. - cont Abx - cont IVf - full liquids today - HIDA tomorrow - appreciate Dr. Walter help. 2- MARZENA : resolved 3- h/o DM: cont with SSI for now. hold po meds Visit type - Emergency Visit Emergency Visit: Yes ED Registration Date: 04/08/18 Care time: The patient presented to the Emergency Department on the above date and was hospitalized for further evaluation of their emergent condition. - New Patient This patient is new to me today: No - Critical Care Critical Care patient: No
[2018-04-12] MEDS: LACTATED RINGERS SOLUTION 1,000 ML IV SCH (01:53)
[2018-04-12] MEDS: INSULIN SLIDING SCALE (NOVOLOG) 1 VIAL SQ SCH ×3 (06:04→17:30)
[2018-04-12 08:08] LABS: ALBUMIN 3.6 g/dl (3.4-5.0); BASO % 0.4 % (0-2.0); BILIRUBIN,DIRECT 0.3 mg/dL (0.0-0.2); BILIRUBIN,TOTAL 0.8 mg/dL (0.2-1); EOS % 2.5 % (0-4.5); HEMATOCRIT 44.4 % (35.4-49); HEMOGLOBIN 15.4 GM/dL (11.7-16.9); LYMPH % 36.5 % (8-40); MCH 29.9 pg (25.7-33.7); MCHC 34.6 g/dl (32.0-35.9); MEAN CELL VOLUME 86.3 fl (80-96); MEAN PLT VOLUME 10.1 fl (7.5-11.1); MONO % 6.4 % (3.8-10.2); NEUT % 54.2 % (42.8-82.8); PLATELET COUNT 165 K/MM3 (134-434); RBC 5.15 M/mm3 (4.00-5.60); RDW 13.8 % (11.9-15.9); TOT PROT 6.8 g/dl (6.4-8.2); WHITE BLOOD COUNT 8.9 K/mm3 (4.0-10.0)
[2018-04-12 08:28] LABS: ALBUMIN 3.7 g/dl (3.4-5.0); ALK PHOS 127 U/L (45-117); AMYLASE 49 U/L (25-115); ANION GAP 8 MMOL/L (8-16); BILIRUBIN,TOTAL 0.6 mg/dL (0.2-1); BLOOD UREA NITROGEN 9 mg/dL (7-18); CALCIUM 9.1 mg/dL (8.5-10.1); CHLORIDE 108 mmol/L (98-107); CO2 25 mmol/L (21-32); CREATININE 0.7 mg/dL (0.55-1.3); GLUCOSE,RANDOM 113 mg/dL (74-106); LIPASE 135 U/L (73-393); POTASSIUM 4.2 mmol/L (3.5-5.1); SGOT/AST 39 U/L (15-37); SGPT/ALT 71 U/L (13-61); SODIUM 141 mmol/L (136-145); TOT PROT 7.1 g/dl (6.4-8.2)
--- NOTE | 2018-04-12 09:00 | PN ---
Teaching Attending Note Name of Resident: Jesusita Amanda ATTENDING PHYSICIAN STATEMENT I saw and evaluated the patient. I reviewed the resident's note and discussed the case with the resident. I agree with the resident's findings and plan as documented. SUBJECTIVE:very minimal abd pain in RUQ today . No N/V OBJECTIVE: NAD, MMM Abd: soft, minimal tenderness in RUQ . ASSESSMENT AND PLAN: 58 y/o gentleman with h/o HLP and DM who presented with Abd pain 1- Abd pain: improved. LFTS are worse today after normalization . not sure if he has pancreatitis or tumor or even acute cholecystitis. - cont Abx - cont IVf - NPO for HIDA today - EUS might be needed 2- MARZENA : resolved 3- h/o DM: cont with SSI for now. hold po meds
[2018-04-12] MEDS ORDERED: DEXTROSE 5%-WATER - 50 ML IVPB ONE (09:32)
[2018-04-12] MEDS ORDERED: cefTRIAXone SODIUM 1 GM VIAL ONE (09:32)
[2018-04-12] MEDS: CEFTRIAXONE 1 GM in DEXTROSE 5%-WATER - 50 ML IVPB SCH (10:15)
[2018-04-12] MEDS: PANTOPRAZOLE SODIUM 40 MG VIAL IVPUSH SCH (10:53)
[2018-04-12] MEDS: LISINOPRIL 20 MG TABLET (FP) PO SCH (10:53)
--- NOTE | 2018-04-12 11:12 | PN ---
Progress Note (short form) - Note Progress Note: No new events Awaiting HIDA Minimal abdominal pain, is feeling hungry Abdomen soft NT minimally distended CBC, BMP 04/12/18 06:30 04/12/18 06:30 Hepatic Panel Total Bilirubin 0.6 mg/dL (0.2-1) 04/12/18 06:30 Direct Bilirubin 0.3 mg/dL (0.0-0.2) H 04/12/18 06:30 AST 39 U/L (15-37) H 04/12/18 06:30 ALT 71 U/L (13-61) H 04/12/18 06:30 Alkaline Phosphatase 127 U/L (45-117) H 04/12/18 06:30 Albumin 3.7 g/dl (3.4-5.0) 04/12/18 06:30 MRI reviewed, focal 1.9x1.9cm area in pancreatic tail - pancreatitis vs neoplasm. Await HIDA results Advance diet as tolerated pending HIDA results Will ultimately need EUS to assess pancreatic tail, but may consider outpatient to let mild pancreatitis quell
[2018-04-12 17:11] VITALS: BP 115/66; PULSE 71; TEMP 98.9
--- NOTE | 2018-04-12 18:00 | DS ---
Physical Exam: SUBJECTIVE: Patient seen and examined at bedside this morning. No acute events overnight. Patient reports minimal RUQ pain, but otherwise has had bowel movements, denies any nausea, vomiting, fever, chills, chest pain, shortness of breath. Patient lying in bed comfortably. OBJECTIVE: Vital Signs Period Temp Pulse Resp BP Sys/Berumen Pulse Ox Last 24 Hr 97.4 F-98.9 F 67-95 16-20 115-139/57-79 95-97 PHYSICAL EXAM GENERAL: The patient is awake, alert, and fully oriented, in no acute distress. HEAD: Normal with no signs of trauma. EYES: PERRLA, EOMI, sclera anicteric, conjunctiva clear. ENT: Ears normal, nares patent, oropharynx clear without exudates, moist mucous membranes. NECK: Trachea midline, full range of motion, supple. LUNGS: Breath sounds equal, clear to auscultation bilaterally. HEART: Regular rate and rhythm, S1, S2 without murmur, rub or gallop. ABDOMEN: Soft, +RUQ tenderness, nondistended, normoactive bowel sounds, no guarding, no rebound. EXTREMITIES: 2+ pulses, warm, well-perfused, no edema. NEUROLOGICAL: Cranial nerves II through XII grossly intact. Normal speech, gait not observed. PSYCH: Normal mood, normal affect. SKIN: Warm, dry, normal turgor, no rashes or lesions noted LABS Laboratory Results - last 24 hr 04/11/18 04/12/18 04/12/18 21:10 06:03 06:30 WBC RBC Hgb Hct MCV MCH MCHC RDW Plt Count MPV Absolute Neuts (auto) Neutrophils % Lymphocytes % Monocytes % Eosinophils % Basophils % Nucleated RBC % Sodium 141 Potassium 4.2 Chloride 108 H Carbon Dioxide 25 Anion Gap 8 BUN 9 Creatinine 0.7 Creat Clearance w eGFR > 60 POC Glucometer 101 104 Random Glucose 113 H Calcium 9.1 Total Bilirubin 0.6 Direct Bilirubin AST 39 H ALT 71 H Alkaline Phosphatase 127 H C-Reactive Protein 0.7 H Total Protein 7.1 Albumin 3.7 Total Amylase 49 Lipase 135 04/12/18 04/12/18 06:30 06:30 WBC 8.9 RBC 5.15 Hgb 15.4 Hct 44.4 MCV 86.3 MCH 29.9 MCHC 34.6 RDW 13.8 Plt Count 165 MPV 10.1 Absolute Neuts (auto) 4.8 Neutrophils % 54.2 Lymphocytes % 36.5 Monocytes % 6.4 Eosinophils % 2.5 Basophils % 0.4 Nucleated RBC % 0 Sodium Potassium Chloride Carbon Dioxide Anion Gap BUN Creatinine Creat Clearance w eGFR POC Glucometer Random Glucose Calcium Total Bilirubin 0.8 Direct Bilirubin 0.3 H AST 38 H ALT 65 H Alkaline Phosphatase 121 H C-Reactive Protein Total Protein 6.8 Albumin 3.6 Total Amylase Lipase -RUQ US: Hepatomegaly with fatty infiltration vs hepatocellular disease. Adequately distended gallbladder without intraluminal stones or sonographic evidence of acute cholecystitis. Very limited visualization of the pancreas that appears to be echogenic. Apparent enlarged pancreatic head likely due to technique. -CT AP: pancreatic head appear slightly more prominent probably on the basis of partial volume averaging rather than representing pathologic change such as mild acute pancreatitis or minimal subtle neoplastic enlargement. Prominent diffuse hepatic steatosis with associated hepatomegaly. Small perisplenic varices are again visualized. Minimal to mild sigmoid diverticulosis. -MRI of abdomen with MRCP: 1.9 x 1.9 cm focus of abnormal signal on the diffusion weighted images within the pancreatic body/tail. No ductal dilatation noted. This could represent focal mild pancreatitis vs an early infitrated is a neoplasm. Hepatomegaly with diffuse fatty infiltration of the liver. -HIDA scan: Filing of the gallbladder excludes acute cystic duct obstruction. HOSPITAL COURSE: Date of Admission:04/08/18 Date of Discharge: 04/12/18 Patient is a 58 year old male with past medical history of DM, HTN, HLD, elevated LFTs, presented with 1 day history of severe, sharp 10/10 RUQ/ epigastric pain radiating to RLQ and right groin. Initial diagnosis of pancreatitis was considered and patient was started on IV fluids and NPO. RUQ ultrasound, CT AP, MRI/MRCP and HIDA scan done. GI was consulted. Patient was started on Ceftriaxone and Flagyl. Patient was discharged with instructions to follow-up with PCP and GI for further work-up, including endoscopic ultrasound. Minutes to complete discharge: 40 Discharge Summary Reason For Visit: PANCREATITIS Current Active Problems Abdominal pain (Acute) Pancreatic mass (Acute) Pancreatitis (Acute) Diabetes mellitus (Chronic) Hyperlipidemia (Chronic) Hypertension (Chronic) Condition: Improved - Instructions Diet, Activity, Other Instructions: Your visit You were admitted to the hospital because you had belly pain. Several imaging were done to evaluate your abdomen. Please follow-up with the product tester (Dr. Neri) for further work- up. You may need an endoscopic ultrasound to further assess your pancreas. Please discuss with your primary doctor about changing your diabetes medications , Januvia and Invokana, because they can cause pancreatitis. We'll give you a prescription for a repeat blood work which you will bring to your primary care doctor when you go to your appointment in a week. Medications Please continue taking your home medications. Follow-up -Please follow up with the product tester (Dr. Neri) within 1 week. You may need additional work-up to determine if you have any masses on your pancreas -Follow-up with your primary care doctor (Dr. Angel) within 1 week. Additional info Call 911 or go to the ED if with any worsening fever, chills, headache, dizziness, chest pain, shortness of breath, abdominal pain, bloody stools, diarrhea, or any new concerns noted. blood work ( CMP ) in 1 wek , fax to PCP please Referrals: Daniel Neri DO [Staff Physician] - 1 Week Soraya Tellez MD [Primary Care Provider] - 1 Week Disposition: HOME - Home Medications Comprehensive Discharge Medication List: Ambulatory Orders Aspirin [Aspirin EC] 81 mg PO DAILY 09/23/13 Lisinopril [Prinivil] 20 mg PO DAILY 09/23/13 Canagliflozin [Invokana] 100 mg PO QID 04/09/18 Glipizide 10 mg PO BID 04/09/18 Sitagliptin Phos/Metformin HCl [Janumet 50-1,000 mg Tablet] 1 each PO QID Miscellaneous Medical Supply [Outpatient Order] 1 each ASDIR #1 misc This patient is new to me today: No Emergency Visit: Yes ED Registration Date: 04/08/18 Care time: The patient presented to the Emergency Department on the above date and was hospitalized for further evaluation of their emergent condition. Critical Care patient: No - Discharge Referral Referred to [facility] Med P.C.: No
== END 2018-04-12 19:16 | disposition home or self-care (01) | DRG 282 ==
LOC: JER 12:30 → JERBED 18:25 → J8W 22:04
PROVIDERS: ADMIT Internal Medicine; ATTEND Internal Medicine
DX: K85.90 Acute pancreatitis without necrosis or infection, unspecified (principal); N17.9 Acute kidney failure, unspecified; R16.0 Hepatomegaly, not elsewhere classified; D72.829 Elevated white blood cell count, unspecified; E78.5 Hyperlipidemia, unspecified; I10 Essential (primary) hypertension; R10.31 Right lower quadrant pain; K86.9 Disease of pancreas, unspecified; E78.1 Pure hyperglyceridemia; K76.89 Other specified diseases of liver; E66.9 Obesity, unspecified; Z68.32 Body mass index [BMI] 32.0-32.9, adult; R11.2 Nausea with vomiting, unspecified; E11.9 Type 2 diabetes mellitus without complications; I86.8 Varicose veins of other specified sites; K76.0 Fatty (change of) liver, not elsewhere classified; K57.30 Diverticulosis of large intestine without perforation or abscess without bleeding
CPT/HCPCS: 36415; 71046-TC-FY; 74176-TC; 74182-TC; 76705-TC; 78226-TC; 80048; 80053; 80061; 80076; 81003; 82150; 82787; 82962; 83605; 83690; 83721; 83735; 84100; 85025; 85027; 85610; 85651; 85730; 86140; 86301; 86850; 86900; 86901; 87040; 93005; 93010; 99282-25; A9537; J7030

== ENCOUNTER 2019-01-04 08:23 | Day surgery (SDC) | payer OTHER ==
[2019-01-04 08:59] VITALS: BMI 31.4
[2019-01-04 10:30] VITALS: TEMP 97.8
[2019-01-04 10:55] VITALS: PULSE 72
[2019-01-04 11:21] VITALS: BP 134/86
--- NOTE | 2019-01-05 17:28 | PATH ---
Surgical Pathology Report Patient Name: TAMIKO DEL CID [facility]. Rec. #: [id number] /Age/Gender: 1960 (Age: 58) / M Account: [id number] Location: [facility]-ENDOSCOPY Taken: 01/04/2019 Received: 01/04/2019 Reported: 01/05/2019 Physicians: Eleazar Neri D.O. Specimen(s) Received CECAL POLYP Clinical History History of colon polyps Postoperative diagnosis: Diverticulosis, colon polyp Final Diagnosis CECAL POLYPS, BIOPSY/POLYPECTOMY: HYPERPLASTIC POLYP(S) WITH MARKED CAUTERY ARTIFACT. POLYPOID COLONIC MUCOSA WITHOUT SIGNIFICANT PATHOLOGIC FINDINGS. Electronically Signed Angle Aguilar M.D. Gross Description Received in formalin, labeled "cecal polyps" are 3 meyers, irregular portions of soft tissue ranging from 0.2-0.3 cm. in greatest dimension. The specimens are submitted in toto in one cassette. 01/04/2019 saudi01/04/2019
== END 2019-01-04 11:24 | disposition home or self-care (01) ==
LOC: JASU-ENDO 08:23
PROVIDERS: ATTEND Internal Medicine Gastroenterology
PROC: 0DBE8ZX Excision of Large Intestine, Via Natural or Artificial Opening Endoscopic, Diagnostic (ICD-10-PCS; principal; 2019-01-04 09:00)
DX: Z12.11 Encounter for screening for malignant neoplasm of colon (principal); K57.30 Diverticulosis of large intestine without perforation or abscess without bleeding; D12.6 Benign neoplasm of colon, unspecified; K64.8 Other hemorrhoids; E11.9 Type 2 diabetes mellitus without complications; E66.01 Morbid (severe) obesity due to excess calories; I10 Essential (primary) hypertension; J44.9 Chronic obstructive pulmonary disease, unspecified
CPT/HCPCS: 82962; 88305-TC